=== PATIENT | female | born 1960 | race Caucasian/White ===

== ENCOUNTER 2016-06-14 16:02 | Emergency (ER) | payer OTHER ==
[~2016-06-14] VITALS: Ht 157.5 cm; Wt 70.0 kg
[~2016-06-14 16:02] MED LIST: HYDR-902 PO; ONDA4TAB14 PO
[2016-06-14 16:15] VITALS: Ht 157.5 cm; Wt 70.0 kg
[2016-06-14] MEDS ORDERED: HYDR-902 PO (18:01)
--- NOTE | 2016-06-14 18:02 | RADRPT ---
PROCEDURE: XR right rib series. CLINICAL INDICATION: Right rib pain. Fall. TECHNIQUE: Three views of the right rib cage are available for review COMPARISON: Chest radiograph 06/07/2016. FINDINGS: No acute fracture or dislocation is seen. No radiopaque foreign body is identified. The visualized portions of the underlying lung is clear. IMPRESSION: 1. No acute fracture of right rib cage x-ray series. RPTAT: HH .Daniel Mayo MD, Date Time Electronically viewed and signed by .Daniel Mayo MD, on 06/14/2016 18:02 .N/
--- NOTE | 2016-06-14 23:50 | ERD ---
ER Documentation Chief Complaint Date/Time DATE: 06/14/16 Chief Complaint Right rib pain HPI The patient is a 55-year-old female who presents to the Emergency Department with complaint of right rib pain. The patient reports that last week, 2015, was walking down a flight of stairs when she lost her balance while carrying something. She fell forward, hitting her right ribs. Since, she has continued to experience throbbing pain to the lateral aspect of the thorax, near ribs 4/5. The pain is worse with movement of the right upper extremity, coughing, sneezing or with palpation of the region. She denies any overlying skin changes, abrasions or ecchymosis. Denies chest pain, palpitations or shortness of breath. She rates her current pain as 8/10. The patient reports that she has been taking [place] for the pain, which reduces the pain to 0-1/10. She has not other complaints or concerns at this time. ROS All systems reviewed and are negative except as per history of present illness. Medications Home Meds Active Scripts Hydrocodone/Acetaminophen ([place] 10-325 Tablet) 1 Each Tablet, 1 TAB PO Q6H Y for PAIN, #12 TAB Prov:SALLY KELSEY MD 06/14/16 Ondansetron (Ondansetron Odt) 4 Mg Tab.rapdis, 4 MG PO Q6H Y for NAUSEA AND/OR VOMITING, #10 TAB Prov:SALLY KELSEY MD 06/08/16 Hydrocodone/Acetaminophen ([place] 10-325 Tablet) 1 Each Tablet, 1 TAB PO Q6H Y for PAIN, #12 TAB Prov:SALLY KELSEY MD 06/08/16 Allergies Allergies: Coded Allergies: No Known Allergy (Unverified , 06/07/16) Physical Exam Vitals Vital Signs Date Time Temp Pulse Resp B/P Pulse Ox O2 Delivery O2 Flow Rate FiO2 06/14/16 16:15 97.8 74 12 130/70 99 Physical Exam Const: Well-developed, well-nourished, in no acute distress. Pleasant. Nontoxic. Head: Atraumatic. Normocephalic. Eyes: Normal Conjunctiva ENT: Normal External Ears, Nose and Mouth. Neck: Full range of motion. Supple. Resp: Clear to auscultation bilaterally. Symmetric expansion. Equal breath sounds. Ribs: Right lateral rib pain, near ribs 4/5. No anterior chest wall tenderness. No flail chest. No skin tenting. No crepitus. Cardio: Regular rate and rhythm. Abd: Soft, non tender, non distended. Normal bowel sounds Skin: No petechiae or rashes. Back: No midline tenderness Ext: No clubbing, cyanosis, or edema. Moving all extremities. Distal pulses 2 +. Capillary refill is less than 2 seconds. Neur: Awake. Alert and oriented x 3. No focal neurologic deficits. Speech is normal. Psych: Normal Mood and Affect Procedures/MDM DIAGNOSTIC TESTS AND INTERPRETATION: PROCEDURE: XR right rib series. CLINICAL INDICATION: Right rib pain. Fall. TECHNIQUE: Three views of the right rib cage are available for review COMPARISON: Chest radiograph 06/07/2016. FINDINGS:No acute fracture or dislocation is seen. No radiopaque foreign body is identified. The visualized portions of the underlying lung is clear. IMPRESSION: No acute fracture of right rib cage x-ray series. .Daniel Mayo MD, MD Date Time Electronically viewed and signed by .Daniel Mayo MD, on 06/14/2016 18: 02 MEDICAL DECISION MAKING: This is a 55-year-old female presenting to the Emergency Department with right-sided rib pain s/p mechanical fall and hitting her right ribs against the ground. The patient had tenderness to palpation over right lateral ribs on physical examination, but otherwise, vital signs were stable. No significant abnormalities, pneumothorax or fractures were noted on the rib x-rays ordered. Patient presentation is not consistent with cardiac etiology. Given low mechanism, CT imaging of chest is not indicated. After rest, the patient reports no new complaints. Upon my review and interpretation of the patient's presentation, clinical data, and overall ER course, I believe the patient's symptoms are most consistent with rib contusion. At this time, the patient is in stable condition and therefore can be discharged home with a prescription for [place] (as she only has 1 left) and strict return precautions for signs of deteriorating or worsening condition. The patient is advised to follow up with her primary care provider within 2-3 days for re-evaluation and further management, or return to the ER sooner for any new or worsening symptoms. I shared my medical decision making and plan with the patient at length and in great detail, and the patient verbally understands and agrees with the plan for further observation and care as an outpatient. At the time of discharge, all questions were answered. Departure Diagnosis: Primary Impression: Rib pain on right side Condition: Stable Patient Instructions: Rib Contusion Additional Instructions: Call your primary care doctor TOMORROW for an appointment during the next 2-3 days.See the doctor sooner or return here if your condition worsens before your appointment time. SOMMER SUTTON PA-C Jun 14, 2016 23:50
== END 2016-06-15 09:29 | disposition home or self-care (01) ==
LOC: FTE 16:02 → E/R 06-15 09:29
DX: S29.9XXA Unspecified injury of thorax, initial encounter (principal); W10.8XXA Fall (on) (from) other stairs and steps, initial encounter; Y92.9 Unspecified place or not applicable
CPT/HCPCS: 71100